=== PATIENT | male | born 1970 | race Caucasian/White ===

== ENCOUNTER 2020-12-21 13:56 | Emergency (ER) | payer OTHER, SELFPAY ==
--- NOTE | ~2020-12-21 | CT_ITS ---
EXAMINATION: CT SOFT TISSUE NECK WITH CONTRAST CLINICAL INFORMATION: Neck pain and swelling. COMPARISON: None TECHNIQUE: Following the intravenous administration of 60 mL of Omnipaque 350 intravenous contrast, helical imaging was performed in the axial plane with generation of coronal and sagittal reformatted images. This CT examination was performed using dose optimization techniques as appropriate, variously including the following: *Automated exposure control *Adjustment of mA and/or kV according to patient size (this includes techniques or standardized protocols for targeted exams where dose is matched to indication/reason for exam; i.e. extremities or head) *Use of iterative reconstruction technique DLP: 1428 mGy-cm FINDINGS: Mild edema of subcutaneous tissues of the neck, overlying the platysma muscle, without focal fluid collection or soft tissue gas. Parotid glands, submandibular glands, and thyroid gland are normal. The nasopharynx, oral cavity, tongue base, and tonsillar pillars are unremarkable. No contour abnormality or pathologic enhancement within the oral cavity or pharyngeal mucosal space. The parapharyngeal fat planes are preserved. The hypopharynx, epiglottis, and preepiglottic space are normal. Laryngeal structures normal. No fluid collections in the deep soft tissues. A few mildly enlarged suprahyoid lymph nodes are noted. A left-sided level 1B lymph node is 0.8 cm short axis dimension. A right-sided level 2 lymph is 1.2 cm short axis dimension. There are no large lymph nodes in the infrahyoid neck or superior mediastinum. No cystic or necrotic lymph nodes. Mild atherosclerotic calcification of bilateral carotid bulbs without significant vessel stenosis. The carotid and vertebral arteries opacify normally; venous structures are unremarkable. Skull base is intact and the mastoid air cells and middle ear cavities are clear. The visualized paranasal sinuses are well aerated. The orbital duran, globes and retrobulbar soft tissues are unremarkable. There is dental caries of the left maxillary first molar tooth. Also, there are dental caries involving right and left mandibular molar teeth, with periapical lucency around a left mandibular molar. No perimandibular abscess. Craniocervical junction is normal. The cervical vertebra have well preserved height and alignment. Multilevel facet arthropathy of the cervical spine, including severe right-sided facet arthropathy at C3-C4. Moderate discovertebral degenerative change is noted at C5-C6 and C6-C7. There is severe right-sided neural foraminal stenosis at C3-C4, and moderate-to severe right-sided foraminal stenosis at C5-C6. The neural foraminal stenosis is moderate on the left at C5-C6 and C6-C7. No prevertebral soft tissue swelling. Lung apices are normal. CT/CT soft tissue neck w con IMPRESSION: * There is mild subcutaneous tissue edema of the neck without focal fluid collection or soft tissue gas. Findings could represent mild cellulitis. The few, mildly enlarged lymph nodes in the suprahyoid neck are likely reactive. There are no cystic or necrotic lymph nodes. * Periodontal disease; however, no evidence of perimaxillary or perimandibular abscess. * No acute abnormalities in the visualized degenerated cervical spine.
[2020-12-21 15:19] VITALS: BP 143/69; PULSE 88; RESP 20; TEMP 37.2; O2SAT 95
[2020-12-21 16:49] VITALS: BP 145/90; PULSE 82; RESP 18; TEMP 36.9; O2SAT 96; BMI 45.9
[2020-12-21 17:11] LABS: MANUAL DIFF FLAG NO
[2020-12-21 17:15] LABS: Basophils Percent Auto 0.2 % (0-2); Eosinophils Absolute Auto 0.1 X10*3/uL (0.0-0.4); Eosinophils Percent Auto 0.9 % (0-4); Hematocrit 38.6 % (42-52); Hemoglobin 13.4 g/dl (14.0-18.0); Imm Gran Abs Auto 0.02 X10*3/uL (0.00-0.03); Imm Gran Pct Auto 0.2 % (0.0-0.4); Lymphocytes Absolute Auto 1.7 X10*3/uL (1.2-4.9); Lymphocytes Percent Auto 18.7 % (20-40); Mean Corpuscular HGB Conc 34.7 g/dl (31.0-36.0); Mean Corpuscular Volume 95.1 fL (80-98); Mean Platelet Volume 10.9 fL (9.4-12.4); Monocytes Absolute Auto 0.8 X10*3/uL (0.1-1.2); Monocytes Percent Auto 8.4 % (2-11); Neutrophils Absolute Auto 6.4 X10*3/uL (2.0-8.3); Neutrophils Percent Auto 71.6 % (45-73); Platelet Count 138 X10*3/uL (160-400); Red Blood Count 4.06 X10*6/uL (4.60-5.80); Red Cell Distribution Width 12.6 % (11.0-16.0); White Blood Count 8.9 X10*3/uL (4.8-10.8)
[2020-12-21] MEDS: 0.9 % Sodium Chloride 1,000 ML 999 ML IV (17:22)
[2020-12-21] MEDS: Clindamycin Phosphate/D5W 300 MG/50 ML PIGGYBACK 100 MG IV (17:22)
[2020-12-21 17:35] LABS: Alanine Aminotransferase 25 U/L (0-40); Alkaline Phosphatase 83 U/L (39-117); Anion Gap 14 (12-20); Aspartate Amino Transferase 19 U/L (5-37); Bilirubin Total 0.5 mg/dL (0.0-1.0); Blood Urea Nitrogen 16 mg/dL (9-16); Calcium 9.6 mg/dL (8.4-10.2); Carbon Dioxide 29 mmol/L (22-29); Chloride 103 mmol/L (96-108); Estimated Glomerular Filt Rate > 60; Glucose Random 151 mg/dL (60-115); Potassium 3.8 mmol/L (3.3-5.1); Sodium 142 mmol/L (135-145); Total Protein 7.1 g/dL (6.5-8.0)
[2020-12-21] MEDS: iohexoL 350 MG/ML 100 ML INFUS..BTL IV (18:28)
[2020-12-21 18:40] VITALS: BP 139/70; PULSE 84; RESP 24; TEMP 37; O2SAT 96
--- NOTE | 2020-12-21 18:58 | PC.NURSE ---
Assumed care of pt. pt resting in stretcher awaiting pending orders. will continue to monitor pt.
--- NOTE | 2020-12-21 19:15 | ED_ITS ---
HPI - Skin/Abscess/Foreign Bdy General Chief complaint: Skin/Abscess/Foreign Body Stated complaint: facial Swelling Time Seen by Provider: 12/21/20 16:46 Source: patient Mode of arrival: ambulatory Limitations: no limitations History of Present Illness HPI narrative: 50-year-old male WITH HISTORY OF ASTHMA, TON, DYSLIPIDEMIA AND RIGHT TOTAL HIP ARTHROPLASTY who presents emergency room with complaint of right lower dental pain which he developed yesterday and today he noticed some swelling in the chin area which became more concerning to him today. States ayala swollen and tender to the touch. Did have dental pain yesterday today the pain in the right lower molar has improved. MD complaint: abscess/boil Onset (ago): day(s) Tetanus up to date: yes Location: face and neck Severity: moderate Quality: aching Pain Consistency: constant Relieving factors: none Exacerbating factors: none Context: none Associated symptoms: denies other symptoms Treatments prior to arrival: none Related Data Previous Rx's Medication Instructions Recorded clindamycin HCl 300 mg capsule 300 mg PO BID 7 Days #14 cap 12/21/20 Allergies Allergy/AdvReac Type Severity Reaction Status Date / Time bee pollen [BEE STINGS] Allergy Severe SWELLING Verified 12/21/20 17:29 cat dander [cats] Allergy Mild Difficulty Verified 12/21/20 17:29 Breathing Review of Systems Review of Systems: Constitutional: No Weight loss, No Fever, No Chills, No Night Sweats, No Fatigue, No Malaise ENT/Mouth: No Hearing loss, No Ear Pain, No Nasal Congestion, No Sinus Pain, No Hoarseness, No sore throat, No Rhinorrhea, No Swallowing Difficulty, + dental pain Eyes: No Eye Pain, No Swelling, No Redness, No Foreign Body, No Discharge, No Vision Changes Cardiovascular: No Chest Pain, No SOB, No Dyspnea on Exertion, No Orthopnea, No Edema, No Palpitations Respiratory: No Cough, No Sputum, No Wheezing, No Dyspnea Gastrointestinal: No Nausea, No Vomiting, No Diarrhea, No Constipation, No abdominal Pain, No Hematochezia, No Melena Genitourinary: No Dysuria, No Urinary Frequency, No Hematuria, No Urinary Incontinence, No Urgency, No Flank Pain, No Urinary Flow Changes, No Hesitancy Musculoskeletal: No joint pain, No Myalgias, No Joint Swelling Skin: No Skin Lesions, No rash Neuro: No Weakness, No Numbness, No Paresthesias, No Loss of Consciousness, No D izziness, No Headache Psych: No Social Issues Heme/Lymph: No Bruising, No Bleeding,No Lymphadenopathy Endocrine: No Polyuria, No Polydipsia, No Temperature Intolerance PENDING SALE TO [facility] Past Medical History PENDING SALE TO [facility] Narrative: Asthma Obstructive sleep apnea TEJAS Medical History (Updated 12/21/20 @ 19:30 by Momo Huff NP) HLD (hyperlipidemia) HTN (hypertension) Social History Social History Advance Directives: No Advance Directives Information Provided: No Physical Exam Vital Signs: Vital Signs: Last Vital Signs Temp 98.6 F 12/21/20 18:40 Pulse 84 12/21/20 18:40 Resp 24 H 12/21/20 18:40 BP 139/70 12/21/20 18:40 Pulse Ox 96 12/21/20 18:40 Body Mass Index 45.9 Const: General: cooperative and healthy appearing; No acute distress or intoxicated appearing Nutritional Appearance: average body habitus Orientation/consciousness: patient oriented x3 HENMT: Head: Yes normal to inspection Ears: hearing grossly normal bilaterally Teeth image: 1. Partially chipped and half eroded, no evidence of abscess. Some reactive swelling to the right cheek and inferior chin area. No overt erythema. Posterior pharynx within normal limits. Eyes: General: appearance normal, both eyes and all related structures Visual Barney: normal visual barney by confrontation Neck: Neck: Yes normal visual inspection, No positive Brudzinski's sign, No positive Kernig's sign and No tender Thyroid: Thyroid normal Chest: Chest palpation & inspection: normal inspection of the chest Resp: Effort & Inspection: normal respiratory effort Auscultation: clear to auscultation bilaterally Cardio: Jugular venous distension: no JVD Rate: regular rate Rhythm: regular rhythm Heart sounds: S1 normal heart sound present and S2 normal heart sound present GI: Inspection: Yes normal to inspection Percussion: Yes normal to percussion Auscultation: normal bowel sounds : General: Yes no CVA tenderness Back/Spine/Pelvis: Back: no CVA tenderness Skin: General skin exam: no rashes or lesions noted Neuro: General: patient oriented x3 Extrem: General: Yes normal to inspection Course Reevaluation(s) Reevaluation #1: Given dose of IV steroid and clinda here. Labs reviewed with the patient we will start him on clindamycin advised to follow-up with dentist for removal the partially tooth, return, follow-up instructions reviewed and agreeable. Stable for discharge. MDM - Skin/Abscess/Foreign Bdy Medical Records Attestation: I reviewed the patient's medical records. Lab Data Attestation: I reviewed the patient's lab results. Result diagrams: 12/21/20 17:06 12/21/20 17:06 Labs: Lab Results 12/21/20 12/21/20 Range/Units 17:06 17:06 WBC 8.9 (4.8-10.8) X10*3/uL RBC 4.06 L (4.60-5.80) X10*6/uL Hgb 13.4 L (14.0-18.0) g/dl Hct 38.6 L (42-52) % MCV 95.1 (80-98) fL MCH 33.0 (27.0-33.0) pg MCHC 34.7 (31.0-36.0) g/dl RDW 12.6 (11.0-16.0) % Plt Count 138 L (160-400) X10*3/uL MPV 10.9 (9.4-12.4) fL Immature Gran % (Auto) 0.2 (0.0-0.4) % Neut % (Auto) 71.6 (45-73) % Lymph % (Auto) 18.7 L (20-40) % Richardson % (Auto) 8.4 (2-11) % Eos % (Auto) 0.9 (0-4) % Baso % (Auto) 0.2 (0-2) % Lymph # (Auto) 1.7 (1.2-4.9) X10*3/uL Richardson # (Auto) 0.8 (0.1-1.2) X10*3/uL Eos # (Auto) 0.1 (0.0-0.4) X10*3/uL Baso # (Auto) 0.0 (0.0-0.2) X10*3/uL Abs Immat Gran (auto) 0.02 (0.00-0.03) X10*3/uL Absolute Neuts (auto) 6.4 (2.0-8.3) X10*3/uL Absolute Nucleated RBC 0.000 (0.0-0.012) X10*3/uL Nucleated RBC % (auto) 0.0 (0.0-0.2) /100WBC Sodium 142 (135-145) mmol/L Potassium 3.8 (3.3-5.1) mmol/L Chloride 103 (96-108) mmol/L Carbon Dioxide 29 (22-29) mmol/L Anion Gap 14 (12-20) BUN 16 (9-16) mg/dL Creatinine 0.95 (0.5-1.4) mg/dL Estim Creat Clear Calc 131.0 Estimated GFR > 60 Random Glucose 151 H (60-115) mg/dL Calcium 9.6 (8.4-10.2) mg/dL Total Bilirubin 0.5 (0.0-1.0) mg/dL AST 19 (5-37) U/L ALT 25 (0-40) U/L Alkaline Phosphatase 83 (39-117) U/L Total Protein 7.1 (6.5-8.0) g/dL Albumin 4.0 (3.5-5.0) g/dL Imaging Data Neck soft tissue with IV contrast: Radiologist's impression: [place] [id number] CT Scan Report Signed Patient: Diaz Arguello MR#: [id number] : 1970 Acct:[id number] Age/Sex: 50 / M ADM Date: 12/21/20 Loc: .ED Attending Dr: Ordering Physician: Momo Huff NP Date of Service: 12/21/20 Procedure(s): CT soft tissue neck w con Accession Number(s): [id number] cc: Mmoo Huff HOME HEALTH CLINICIAN~ EXAMINATION: CT SOFT TISSUE NECK WITH CONTRAST CLINICAL INFORMATION: Neck pain and swelling.? COMPARISON: None? TECHNIQUE: Following the intravenous administration of 60 mL of Omnipaque 350 intravenous contrast, helical imaging was performed in the axial plane with generation of coronal and sagittal reformatted images. This CT examination was performed using dose optimization techniques as appropriate, variously including the following: *Automated exposure control *Adjustment of mA and/or kV according to patient size (this includes techniques or standardized protocols for targeted exams where dose is matched to indication/reason for exam; i.e. extremities or head) *Use of iterative reconstruction technique DLP: 1428 mGy-cm FINDINGS: Mild edema of subcutaneous tissues of the neck, overlying the platysma muscle, without focal fluid collection or soft tissue gas. Parotid glands, submandibular glands, and thyroid gland are normal. The nasopharynx, oral cavity, tongue base, and tonsillar pillars are unremarkable. No contour abnormality or pathologic enhancement within the oral cavity or pharyngeal mucosal space. The parapharyngeal fat planes are preserved.? The hypopharynx, epiglottis, and preepiglottic space are normal. Laryngeal structures normal. No fluid collections in the deep soft tissues. A few mildly enlarged suprahyoid lymph nodes are noted. A left-sided level 1B lymph node is 0.8 cm short axis dimension. A right-sided level 2 lymph is 1.2 cm short axis dimension. There are no large lymph nodes in the infrahyoid neck or superior mediastinum. No cystic or necrotic lymph nodes. Mild atherosclerotic calcification of bilateral carotid bulbs without significant vessel stenosis. The carotid and vertebral arteries opacify normally; venous structures are unremarkable. Skull base is intact and the mastoid air cells and middle ear cavities are clear.? The visualized paranasal sinuses are well aerated. The orbital duran, globes and retrobulbar soft tissues are unremarkable. There is dental caries of the left maxillary first molar tooth. Also, there are dental caries involving right and left mandibular molar teeth, with periapical lucency around a left mandibular molar. No perimandibular abscess. Craniocervical junction is normal. The cervical vertebra have well preserved height and alignment. Multilevel facet arthropathy of the cervical spine, including severe right-sided facet arthropathy at C3-C4. Moderate discovertebral degenerative change is noted at C5-C6 and C6-C7. There is severe right-sided neural foraminal stenosis at C3-C4, and moderate-to severe right-sided foraminal stenosis at C5-C6. The neural foraminal stenosis is moderate on the left at C5-C6 and C6-C7. No prevertebral soft tissue swelling. Lung apices are normal. CT/CT soft tissue neck w con IMPRESSION: *? There is mild subcutaneous tissue edema of the neck without focal fluid collection or soft tissue gas. Findings could represent mild cellulitis. The few, mildly enlarged lymph nodes in the suprahyoid neck are likely reactive. There are no cystic or necrotic lymph nodes. *? Periodontal disease; however, no evidence of perimaxillary or perimandibular abscess. *? No acute abnormalities in the visualized degenerated cervical spine. ? Dictated By: SHARON SANCHEZ MD Signed By: <Electronically signed by SHARON SANCHEZ MD in OV> 12/21/20 1908 DD/ 1651 TD/TT:? Cosmetology Instructor: PD Discharge Plan Discharge Clinical Impression: Pain, dental, Abscess, dental Patient Disposition: Home, Self-Care Instructions: Dental Abscess (ED), Toothache (ED), Mouth Care (ED) Additional Instructions: Take antibiotics as prescribed Follow-up with dentist for further evaluation treatment Return if any worsening or concerns Follow-up close with your primary doctor/ENT as discussed Thank you Prescriptions: New clindamycin HCl 300 mg capsule 300 mg PO BID 7 Days Qty: 14 RF: 0 Referrals: Watson Barriga DO [Primary Care Provider] - 1 week
== END 2020-12-21 20:17 | disposition home or self-care (01) ==
PROVIDERS: Nurse Practitioner Primary Care; Emergency Provider Internal Medicine; PCP Internal Medicine
DX: K04.7 Periapical abscess without sinus (principal); K08.89 Other specified disorders of teeth and supporting structures
CPT/HCPCS: 36415; 70491; 80053; 85025; 96361; 96374; 99283; 99284; Q9967

== ENCOUNTER 2020-12-24 11:46 | Outpatient (REF) | payer OTHER, SELFPAY | END 2020-12-24 11:47 | disposition home or self-care (01) | LOC: HO.LNP 11:46 | PROVIDERS: Visit Provider Internal Medicine | DX: J06.9 Acute upper respiratory infection, unspecified (principal); Z20.822 Contact with and (suspected) exposure to COVID-19 | CPT/HCPCS: U0003; U0005 ==

== ENCOUNTER 2021-02-28 13:12 | Emergency (ER) | payer OTHER, SELFPAY ==
--- NOTE | ~2021-02-28 | XR_ITS ---
EXAMINATION: XR WRIST, RIGHT CLINICAL INFORMATION: Swelling COMPARISON: None TECHNIQUE: PA, lateral, and oblique views of the right wrist. FINDINGS: The bones and soft tissues are normal. No fracture. Alignment is anatomic with normal joint spaces. No erosions or abnormal soft tissue calcifications. XR/XR wrist RT 2V IMPRESSION: Normal right wrist.
[2021-02-28 13:34] VITALS: BP 114/64; PULSE 82; RESP 18; TEMP 36.9; O2SAT 95; BMI 44.6
--- NOTE | 2021-02-28 15:31 | ED.EXTPRO ---
HPI - Extremity Problem General Chief complaint: Extremity Injury, Upper Stated complaint: WRIST PAIN Time Seen by Provider: 02/28/21 15:29 Source: patient Mode of arrival: ambulatory History of Present Illness HPI Narrative: 50-year-old male with past medical history of hyperlipidemia, hypertension, presenting to the ED complaining of right wrist pain, swelling, decreased ROM since waking this morning. Reports yesterday helped his brother make a fence, and then slept on the couch on right wrist last night, however denies known injury/trauma, fall. Denies numbness, tingling, weakness, crush injury, fever/chills MD Complaint: extremity pain and extremity swelling Related Data Previous Rx's Medication Instructions Recorded clindamycin HCl 300 mg capsule 300 mg PO BID 7 Days #14 cap 12/21/20 acetaminophen 500 mg tablet 500 mg PO Q6H PRN #20 tab 02/28/21 (Tylenol Extra Strength) naproxen 500 mg tablet 500 mg PO BID PRN 10 Days #20 tab 02/28/21 prednisone 20 mg tablet 40 mg PO DAILY 5 Days #10 tab 02/28/21 tramadol 50 mg tablet 50 mg PO Q8H PRN #9 tab 02/28/21 Allergies Allergy/AdvReac Type Severity Reaction Status Date / Time bee pollen [BEE STINGS] Allergy Severe SWELLING Verified 12/21/20 17:29 cat dander [cats] Allergy Mild Difficulty Verified 12/21/20 17:29 Breathing Review of Systems Review of Systems: Constitutional: No Fever, No Chills ENT/Mouth: No Ear Pain, No Nasal Congestion, No Sinus Pain,No sore throat Cardiovascular: No Chest Pain, No SOB Respiratory: No Cough, No Wheezing Gastrointestinal: No Nausea, No Vomiting, No Diarrhea, No Constipation, No Abdominal pain Genitourinary: No Dysuria, No Urinary Frequency, No Hematuria, No Flank Pain Musculoskeletal: + joint pain, No Myalgias, + Joint Swelling Skin: No Skin Lesions, No rash Neuro: No Weakness, No Numbness, No Paresthesias Yes all other systems are reviewed and are negative Neurologic: Denies Sensory deficit (Neuro) [facility] Past Medical History Attestation statement: The following information was validated with the patient. Medical History (Updated 02/28/21 @ 15:38 by JOSE DANIEL Gorman) HLD (hyperlipidemia) HTN (hypertension) Social History Social History Advance Directives: No Advance Directives Information Provided: No Physical Exam Vital Signs: Vital Signs: Last Vital Signs Temp 98.4 F 02/28/21 13:34 Pulse 82 02/28/21 13:34 Resp 18 02/28/21 13:34 BP 114/64 02/28/21 13:34 Pulse Ox 95 02/28/21 13:34 Body Mass Index 44.6 Const: General: cooperative, healthy appearing and no acute distress Orientation/consciousness: patient oriented x3 Limitations: no limitations HENMT: Head: Yes normal to inspection Ears: hearing grossly normal bilaterally General nose exam: Normal external nose present Face and sinus: Yes normal facial exam Eyes: General: appearance normal, both eyes and all related structures EOM: EOMs intact bilaterally Neck: Neck: Yes normal visual inspection and Yes no meningeal signs Resp: Effort & Inspection: normal respiratory effort and no respiratory distress Cardio: Rate: regular rate Peripheral pulses: radial pulses present Skin: Rashes: no rashes Wounds: no wounds Neuro: General: patient oriented x3 and no meningeal signs Gait exam (Neuro): Normal gait present Sensory Exam: No Sensory deficit (Neuro) Extrem: Other: Right wrist with notable swelling. Diffusely tender. No snuffbox tenderness to palpation. No erythema. No fluctuance/induration. Limited ROM to wrist secondary to pain. Right palm mildly swollen, finger to thumb opposition intact however decreased thumb to pinky secondary to swelling. Sensation intact to light touch. Neurovascularly intact Right elbow nontender. ROM intact No streaking. No warmth Course Course Course Narrative: XR wrist RT 2V IMPRESSION: Normal right wrist. > patient placed in Dannie wrap and volar splint. Is to follow-up with orthopedics/PCP MDM - Extremity (Nontraumatic) MDM Narrative Medical decision making narrative: 50-year-old male with past medical history of hyperlipidemia, hypertension, presenting to the ED complaining of right wrist pain, swelling, decreased ROM since waking this morning. On exam VSS, NAD, well appearing, physical exam as above. Concern for ligamental/tendon/MSK injury vs gout vs fracture vs arthritis Low concern for septic joint/arthritis Plan: X-rays Discharge Plan Discharge Clinical Impression: Pain and swelling of right wrist Patient Disposition: Home, Self-Care Instructions: Arthralgia (ED), Swollen Joint (ED) Additional Instructions: Your x-rays are unremarkable. Wear Dannie wrap at home as needed for stability and compression. Use splint as needed for comfort Naproxen as an anti-inflammatory/pain medication. Prednisone is a steroid which will help with inflammation Tramadol an opiate pain medication which will help with pain, take only when pain is severe for the next 3 days In addition take Tylenol Please follow-up with her primary care doctor Follow-up with orthopedics as needed If your hand/wrist begins to look infected, is red, there streaking, you fever please return to the ED. If her pain becomes unbearable peds return to the ED Prescriptions: New prednisone 20 mg tablet 40 mg PO DAILY 5 Days Qty: 10 RF: 0 tramadol 50 mg tablet 50 mg PO Q8H PRN (Reason: pain, severe) Qty: 9 RF: 0 acetaminophen [Tylenol Extra Strength] 500 mg tablet 500 mg PO Q6H PRN (Reason: pain or fever) Qty: 20 RF: 0 naproxen 500 mg tablet 500 mg PO BID PRN (Reason: pain) 10 Days Qty: 20 RF: 0 No Action clindamycin HCl 300 mg capsule 300 mg PO BID 7 Days Qty: 14 RF: 0
== END 2021-02-28 15:47 | disposition home or self-care (01) ==
PROVIDERS: Emergency Provider Emergency Medicine; PCP Internal Medicine
DX: M25.531 Pain in right wrist (principal); M25.431 Effusion, right wrist; I10 Essential (primary) hypertension
CPT/HCPCS: 73100; 99283; 99284

== ENCOUNTER 2022-02-06 16:00 | Emergency (ER) | payer OTHER, SELFPAY ==
--- NOTE | ~2022-02-06 | XR_ITS ---
EXAMINATION: XR HAND, RIGHT CLINICAL INFORMATION: Pain and swelling COMPARISON: None TECHNIQUE: PA, lateral, and oblique views of the right hand. FINDINGS: The bones and soft tissues are normal. No fracture. Alignment is anatomic. Joint spaces are maintained. No erosions or soft tissue calcifications. XR/XR hand RT 2V IMPRESSION: No significant osseous changes to explain patient's pain symptoms.
[2022-02-06 18:44] VITALS: BP 167/118; PULSE 85; RESP 18; TEMP 36.6; O2SAT 96; BMI 43.0
[2022-02-06] MEDS: oxyCODONE HCl Immed Release 5 MG TABLET PO (19:23)
--- NOTE | 2022-02-06 20:31 | ED.EXTPRO ---
HPI - Extremity Problem General Chief complaint: Extremity Injury, Upper Stated complaint: Finger swelling Time Seen by Provider: 02/06/22 19:07 Source: patient Mode of arrival: ambulatory History of Present Illness HPI Narrative: 51-year-old male with past medical history of hypertension, hyperlipidemia, presenting to the ED complaining of right ring finger swelling, pain, erythema s/p jamming in it yesterday while helping brother. States finger was deformed and pulled on it quickly causing knuckle to pop. Reports increasing pain/swelling, and pain with ROM. Denies direct injury, crush wound, numbness, tingling, weakness, fever. MD Complaint: extremity pain and extremity swelling Onset (ago): day(s) Pain Consistency: constant Related Data Previous Rx's Medication Instructions Recorded clindamycin HCl 300 mg capsule 300 mg PO BID 7 days #14 caps 12/21/20 acetaminophen 500 mg tablet 500 mg PO Q6H PRN pain or fever 02/28/21 (Tylenol Extra Strength) #20 tabs naproxen 500 mg tablet 500 mg PO BID PRN pain 10 days #20 02/28/21 tabs prednisone 20 mg tablet 40 mg PO DAILY 5 days #10 tabs 02/28/21 tramadol 50 mg tablet 50 mg PO Q8H PRN pain, severe #9 02/28/21 tabs hydrocodone 5 mg-acetaminophen 325 1 tab PO Q8H PRN pain, severe 3 02/06/22 mg tablet days #9 tabs ibuprofen 800 mg tablet 800 mg PO Q8H PRN pain #14 tabs 02/06/22 Allergies Allergy/AdvReac Type Severity Reaction Status Date / Time bee pollen [BEE STINGS] Allergy Severe SWELLING Verified 12/21/20 17:29 cat dander [cats] Allergy Mild Difficulty Verified 12/21/20 17:29 Breathing Review of Systems Review of Systems: Constitutional: No Fever, No Chills ENT/Mouth: No Ear Pain, No Nasal Congestion, No sore throat, No Rhinorrhea, No Swallowing Difficulty Cardiovascular: No Chest Pain, No SOB Respiratory: No Cough, No Sputum Gastrointestinal: No Nausea, No Vomiting, No Abdominal pain Genitourinary: No Dysuria, No Urinary Frequency, No Hematuria, No Flank Pain Musculoskeletal: + joint pain, No Myalgias, + Joint Swelling Skin: No Skin Lesions, No rash Neuro: No Weakness, No Numbness, No Paresthesias Yes all other systems are reviewed and are negative Constitutional: Constitutional: Reports as per [facility] Past Medical History Attestation statement: The following information was validated with the patient. Medical History HLD (hyperlipidemia) HTN (hypertension) Social History Social History Advance Directives: No Advance Directives Information Provided: Yes Physical Exam Vital Signs: Vital Signs: Last Vital Signs Temp 97.9 F 02/06/22 18:44 Pulse 85 02/06/22 18:44 Resp 18 02/06/22 18:44 BP 149/84 H 02/06/22 20:37 Pulse Ox 96 02/06/22 18:44 O2 Del Method 02/06/22 18:44 BMI result Body Mass Index 43.0 Const: General: cooperative, healthy appearing and no acute distress Orientation/consciousness: patient oriented x3 Limitations: no limitations HEENT: Head: Yes normal to inspection and Yes atraumatic Ears: hearing grossly normal bilaterally General nose exam: Normal external nose present Face and sinus: Yes normal facial exam Eyes: General: appearance normal, both eyes and all related structures EOM: EOMs intact bilaterally Neck: Neck: Yes normal visual inspection and Yes no meningeal signs Resp: Effort & Inspection: normal respiratory effort and no respiratory distress Cardio: Rate: regular rate Heart sounds: S1 normal heart sound present and S2 normal heart sound present Peripheral pulses: radial pulses present and ulnar radial pulses present Skin: Rashes: no rashes Wounds: no wounds Neuro: General: patient oriented x3, tone normal and no meningeal signs Gait exam (Neuro): Normal gait present Extrem: Other: Right 4th digit with noted swelling and erythema greatest to PIP. Tender to palpation, decreased ROM to PIP secondary to pain/swelling. Sensation intact to light touch. No warmth. Course Course Course Narrative: XR hand RT 2V IMPRESSION: No significant osseous changes to explain patient's pain symptoms. >> suspect patient may have dislocated and relocated finger on his own. Will pace in finger splint. Due to erythema also start on Keflex -BP improved after pain medications MDM - Extremity (Nontraumatic) MDM Narrative Medical decision making narrative: 51-year-old male with past medical history of hypertension, hyperlipidemia, presenting to the ED complaining of right ring finger swelling, pain, erythema s/p jamming in it yesterday while helping brother. On exam hypertensive, believes he may have forgot to take 1 of his BP medications today, physical exam as above. Concern for hypertension secondary to pain. Concern for fracture vs dislocation/relocation vs ? Early cellulitis. Low suspicion for septic joint/arthritis Plan: X-rays Medical Records Attestation: I reviewed the patient's medical records. Lab Data Attestation: I reviewed the patient's lab results. Discharge Plan Discharge Clinical Impression: Jammed interphalangeal joint of finger of right hand Patient Disposition: Home, Self-Care Instructions: Jammed Finger (ED), Cellulitis (ED) Additional Instructions: Your x-ray does not show any bony abnormality. We suspect he may have dislocated and relocated your finger on her own. Keep Finger splint on, dry, and clean, please follow-up with orthopedics. Due to the surrounding redness Keflex as an antibiotic please take as prescribed. [place] as an opiate pain medication, take only when pain is severe for the next 3 days. In addition take ibuprofen. Ice. Elevate. If symptoms persist or worsen, pain becomes unbearable, you have fever, increasing swelling, streaking, redness return to the ED Prescriptions: New hydrocodone-acetaminophen 5-325 mg tablet 1 tab PO Q8H PRN (Reason: pain, severe) 3 Days Qty: 9 0RF Rx Instructions: Partial Fill upon patient request. ibuprofen 800 mg tablet 800 mg PO Q8H PRN (Reason: pain) Qty: 14 0RF No Action clindamycin HCl 300 mg capsule 300 mg PO BID 7 Days Qty: 14 0RF prednisone 20 mg tablet 40 mg PO DAILY 5 Days Qty: 10 0RF tramadol 50 mg tablet 50 mg PO Q8H PRN (Reason: pain, severe) Qty: 9 0RF acetaminophen [Tylenol Extra Strength] 500 mg tablet 500 mg PO Q6H PRN (Reason: pain or fever) Qty: 20 0RF naproxen 500 mg tablet 500 mg PO BID PRN (Reason: pain) 10 Days Qty: 20 0RF Referrals: Allison Tinoco MD [Physician] - 1 week
[2022-02-06 20:37] VITALS: BP 149/84
== END 2022-02-06 21:58 | disposition home or self-care (01) ==
PROVIDERS: Emergency Provider Emergency Medicine; PCP Internal Medicine
DX: S69.91XA Unspecified injury of right wrist, hand and finger(s), initial encounter (principal); W22.09XA Striking against other stationary object, initial encounter; I10 Essential (primary) hypertension; Y93.89 Activity, other specified; Y92.039 Unspecified place in apartment as the place of occurrence of the external cause; Y99.9 Unspecified external cause status
CPT/HCPCS: 29130; 73120; 99283

== ENCOUNTER 2022-02-16 15:33 | Outpatient (REF) | payer OTHER, SELFPAY ==
--- NOTE | ~2022-02-16 | XR_ITS ---
EXAMINATION: XR HAND, RIGHT CLINICAL INFORMATION: Pain in the hand. COMPARISON: X-ray the right hand January 2022 TECHNIQUE: PA, lateral, and oblique views of the right hand. FINDINGS: Fourth DIP joint: Tiny subchondral cyst. No joint space narrowing or marginal osteophytes. Remaining bones joints and soft tissues unremarkable and unchanged. 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
== END 2022-02-16 15:34 | disposition home or self-care (01) ==
LOC: HO.HOSX 15:33
PROVIDERS: Visit Provider Physician Assistant
DX: S69.91XA Unspecified injury of right wrist, hand and finger(s), initial encounter (principal)
CPT/HCPCS: 73130; 99202

== ENCOUNTER 2022-03-02 | Outpatient (REF) | payer OTHER, SELFPAY | END 2022-03-02 00:01 | disposition home or self-care (01) | LOC: HO.HOSX | PROVIDERS: Visit Provider Physician Assistant | DX: Z13.89 Encounter for screening for other disorder (principal) ==

== ENCOUNTER 2022-04-25 21:58 | Emergency (ER) | payer OTHER, SELFPAY ==
--- NOTE | ~2022-04-25 | XR_ITS ---
EXAMINATION: XR HIP, RIGHT CLINICAL INFORMATION: Fall, right hip pain COMPARISON: 09/07/2015 TECHNIQUE: Two views of the right hip. FINDINGS: Right total hip arthroplasty hardware appears well seated and in anatomic alignment. No acute fracture is seen. Redemonstrated heterotopic ossification adjacent to the right hip. There is moderate to severe joint space narrowing of the left hip. Bony pelvis appears intact. Sacroiliac joints and pubic symphysis are maintained. XR/XR hip RT w PEL1V IMPRESSION: No acute findings identified. Right total hip arthroplasty hardware in anatomic alignment.
[2022-04-25 22:04] VITALS: BP 134/70; PULSE 114; RESP 18; TEMP 36.7; O2SAT 94; BMI 45.1
--- NOTE | 2022-04-26 00:10 | ED.FALL ---
HPI - Fall General Chief Complaint: Fall Stated Complaint: Fall/Hip pain Time Seen by Provider: 04/26/22 00:03 Source: patient Mode of arrival: ambulatory Limitations: no limitations History of Present Illness HPI Narrative: Patient comes to the emergency room complaining of right-sided hip pain. Patient states that he slipped on snow, landed on the right side of his hip. Patient did not hit his head, did not lose consciousness, denies pain anywhere else. Patient is not on blood thinners. Patient was able to get up with help of a friend, patient has been ambulatory. Patient drove himself to the emergency room. Related Data Home Medications Medication Instructions Recorded Confirmed amlodipine 5 mg tablet 5 mg PO DAILY 02/16/22 atorvastatin 20 mg tablet 20 mg PO DAILY 02/16/22 budesonide-formoterol HFA 160 2 puff inhalation BID 02/16/22 mcg-4.5 mcg/actuation aerosol inhaler (Symbicort) buspirone 30 mg tablet 15 mg PO BID 02/16/22 ferrous sulfate 325 mg (65 mg 325 mg PO QAM 02/16/22 iron) tablet (FeroSul) ferrous sulfate 325 mg (65 mg 325 mg PO DAILY 02/16/22 iron) tablet,delayed release fluticasone propionate 50 2 spray intranasal DAILY PRN 02/16/22 mcg/actuation nasal allergies spray,suspension gabapentin 800 mg tablet 800 mg PO TID PRN joint pain 02/16/22 hydrochlorothiazide 25 mg tablet 25 mg PO DAILY 02/16/22 loratadine 10 mg tablet (Allergy 10 mg PO DAILY PRN allergies 02/16/22 Relief (loratadine)) meloxicam 15 mg tablet 15 mg PO DAILY 02/16/22 montelukast 10 mg tablet 10 mg PO BEDTIME 02/16/22 tadalafil 10 mg tablet 10 mg PO DAILY 02/16/22 Previous Rx's Medication Instructions Recorded clindamycin HCl 300 mg capsule 300 mg PO BID 7 days #14 caps 12/21/20 acetaminophen 500 mg tablet 500 mg PO Q6H PRN pain or fever 02/28/21 (Tylenol Extra Strength) #20 tabs naproxen 500 mg tablet 500 mg PO BID PRN pain 10 days #20 02/28/21 tabs prednisone 20 mg tablet 40 mg PO DAILY 5 days #10 tabs 02/28/21 tramadol 50 mg tablet 50 mg PO Q8H PRN pain, severe #9 02/28/21 tabs hydrocodone 5 mg-acetaminophen 325 1 tab PO Q8H PRN pain, severe 3 02/06/22 mg tablet days #9 tabs ibuprofen 800 mg tablet 800 mg PO Q8H PRN pain #14 tabs 02/06/22 cephalexin 500 mg capsule 500 mg PO QID 7 days #28 caps 02/07/22 acetaminophen 500 mg capsule 500 mg PO Q6H PRN fever or pain 04/26/22 #20 caps ibuprofen 600 mg tablet 600 mg PO Q8H PRN fever or pain 04/26/22 #20 tabs Allergies Allergy/AdvReac Type Severity Reaction Status Date / Time bee pollen [BEE STINGS] Allergy Severe SWELLING Verified 04/25/22 22:03 cat dander [cats] Allergy Mild Difficulty Verified 04/25/22 22:03 Breathing Review of Systems Review of Systems: Constitutional : No Weight loss, No Fever, No Chills, No Night Sweats, No Fatigue, No Malaise ENT/Mouth : No Hearing loss, No Ear Pain, No Nasal Congestion, No Sinus Pain, No Hoarseness, No sore throat, No Rhinorrhea, No Swallowing Difficulty Eyes: No Eye Pain, No Swelling, No Redness, No Foreign Body, No Discharge, No Vision Changes Cardiovascular : No Chest Pain, No SOB, No Dyspnea on Exertion, No Orthopnea, No Edema, No Palpitations Respiratory : No Cough, No Sputum, No Wheezing, No Smoke Exposure, No Dyspnea Gastrointestinal : No Nausea, No Vomiting, No Diarrhea, No Constipation, No abdominal Pain, No Hematochezia, No Melena Genitourinary : no irregular bleeding, No Dysuria, No Urinary Frequency, No Hematuria, No Urinary Incontinence, No Urgency, No Flank Pain, No Urinary Flow Changes, No Hesitancy Musculoskeletal : Complaining of right-sided hip pain, No Myalgias, No Joint Swelling Skin : No Skin Lesions, No rash Neuro : No Weakness, No Numbness, No Paresthesias, No Loss of Consciousness, No Dizziness, No Headache Psych : No Anxiety/Panic, No Depression, No SI/HI/AH/VH, No Social Issues, Heme/Lymph: No Bruising, No Bleeding,No Lymphadenopathy Endocrine : No Polyuria, No Polydipsia, No Temperature Intolerance PMFSH Past Medical History Medical History HLD (hyperlipidemia) HTN (hypertension) Surgical History History of total right hip arthroplasty Social History Social History Smoked in Last 30 Days: No Use of substances other than those prescribed or required for medical reasons: Yes Substance Use Type: Crack/Cocaine and Marijuana Substance Use Frequency Other:: 3 TIMES A MONTH Advance Directives: No Advance Directives Information Provided: No Physical Exam Vital Signs: Vital Signs: Last Vital Signs Temp 98.1 F 04/25/22 22:04 Pulse 114 H 04/25/22 22:04 Resp 18 04/25/22 22:04 BP 134/70 04/25/22 22:04 Pulse Ox 94 04/25/22 22:04 O2 Del Method 04/25/22 22:04 BMI result Body Mass Index 45.1 Const: Other: Appearance: Alert. Oriented X3. No acute distress. Eyes: Pupils equal, round and reactive to light. ENT: Pharynx normal. Neck: Normal inspection. Neck supple. No lymph nodes noted. No crepitus CVS: Normal heart rate and rhythm. Pulses normal. Normal S1 and S2 Respiratory: No respiratory distress. Breath sounds normal. No Wheezing. No rales Abdomen: Soft and nontender. No rigidity. No distention. Skin: Skin warm and dry. Normal skin color. Normal skin turgor. No ecchymosis Extremities: No lower extremity edema. No Lacerations. No Rash Neuro: Oriented X 3. No motor deficit. No sensory deficit. Moving all extremities. No slurred speech. CN 2 through 12 grossly intact Psych: calm, cooperative, normal affect Course Course Course Narrative: Patient drove himself here, patient has been ambulatory, no ecchymosis, x-ray negative for fracture, patient given 1 dose of p.o. tramadol Medical Decision Making Medical Decision Making Differential Diagnoses: Differential diagnosis (Ecchymosis, contusion, hip fracture, hip dislocation) Independent interpretation of EKG, rhythm strip, radiology study: Independent interp EKG,rhythm strip, radiology study (Hip x-ray) My interpretation is no fracture, no dislocation, hip arthroplasty in anatomic alignment Radiology report: FINDINGS: Right total hip arthroplasty hardware appears well seated and in anatomic alignment. No acute fracture is seen. Redemonstrated heterotopic ossification adjacent to the right hip. There is moderate to severe joint space narrowing of the left hip. Bony pelvis appears intact. Sacroiliac joints and pubic symphysis are maintained.? XR/XR hip RT w PEL1V IMPRESSION: No acute findings identified. Right total hip arthroplasty hardware in anatomic alignment. Discussion of test interpretation with radiology: Discussion of test interpretation with radiology Discharge Plan Discharge Clinical Impression: Contusion of hip, right Patient Disposition: Home, Self-Care Instructions: Hip Contusion (ED) Additional Instructions: Please follow-up with your primary care physician tomorrow. If you have any worsening or new symptoms, please return to the emergency room or call 911 Prescriptions: New acetaminophen 500 mg capsule 500 mg PO Q6H PRN (Reason: fever or pain) Qty: 20 0RF ibuprofen 600 mg tablet 600 mg PO Q8H PRN (Reason: fever or pain) Qty: 20 0RF No Action clindamycin HCl 300 mg capsule 300 mg PO BID 7 Days Qty: 14 0RF prednisone 20 mg tablet 40 mg PO DAILY 5 Days Qty: 10 0RF tramadol 50 mg tablet 50 mg PO Q8H PRN (Reason: pain, severe) Qty: 9 0RF acetaminophen [Tylenol Extra Strength] 500 mg tablet 500 mg PO Q6H PRN (Reason: pain or fever) Qty: 20 0RF naproxen 500 mg tablet 500 mg PO BID PRN (Reason: pain) 10 Days Qty: 20 0RF hydrocodone-acetaminophen 5-325 mg tablet 1 tab PO Q8H PRN (Reason: pain, severe) 3 Days Qty: 9 0RF Rx Instructions: Partial Fill upon patient request. ibuprofen 800 mg tablet 800 mg PO Q8H PRN (Reason: pain) Qty: 14 0RF cephalexin 500 mg capsule 500 mg PO QID 7 Days Qty: 28 0RF buspirone 30 mg tablet 15 mg PO BID montelukast 10 mg tablet 10 mg PO BEDTIME budesonide-formoterol [Symbicort] 160-4.5 mcg/actuation HFA aerosol inhaler 2 puff inhalation BID loratadine [Allergy Relief (loratadine)] 10 mg tablet 10 mg PO DAILY PRN (Reason: allergies) ferrous sulfate [FeroSul] 325 mg (65 mg iron) tablet 325 mg PO QAM amlodipine 5 mg tablet 5 mg PO DAILY tadalafil 10 mg tablet 10 mg PO DAILY atorvastatin 20 mg tablet 20 mg PO DAILY ferrous sulfate 325 mg (65 mg iron) tablet,delayed release (DR/EC) 325 mg PO DAILY meloxicam 15 mg tablet 15 mg PO DAILY gabapentin 800 mg tablet 800 mg PO TID PRN (Reason: joint pain) fluticasone propionate 50 mcg/actuation spray,suspension 2 spray intranasal DAILY PRN (Reason: allergies) hydrochlorothiazide 25 mg tablet 25 mg PO DAILY
[2022-04-26] MEDS: traMADoL HCL 50 MG TABLET PO (00:30)
[2022-04-26 00:34] VITALS: BP 147/87; PULSE 88; RESP 16; O2SAT 95
== END 2022-04-26 00:39 | disposition home or self-care (01) ==
PROVIDERS: Emergency Provider Emergency Medicine; PCP Internal Medicine
DX: S70.01XA Contusion of right hip, initial encounter (principal); W00.0XXA Fall on same level due to ice and snow, initial encounter; Y93.9 Activity, unspecified; Y92.9 Unspecified place or not applicable; Y99.9 Unspecified external cause status
CPT/HCPCS: 73502; 99283; 99284